=== PATIENT | female | born 1955 | race Caucasian/White ===

== ENCOUNTER 2021-04-17 11:36 | Outpatient (CLI) | payer OTHER | END 2021-04-17 11:37 | disposition home or self-care (01) | LOC: CSHRAD 11:36 | PROVIDERS: ATTEND Nurse Practitioner | DX: R00.2 Palpitations (principal) | CPT/HCPCS: 71046 ==

== ENCOUNTER 2021-04-24 12:42 | Outpatient (CLI) | payer OTHER | END 2021-04-24 12:43 | disposition home or self-care (01) | LOC: CSHULT 12:42 | PROVIDERS: ATTEND Nurse Practitioner | DX: R07.9 Chest pain, unspecified (principal); R06.02 Shortness of breath; I51.7 Cardiomegaly | CPT/HCPCS: 93306 ==